=== PATIENT | female | born 1950 ===

== ENCOUNTER 2018-08-17 20:38 | Inpatient (IN) | payer OTHER ==
[2018-08-17 21:39] LABS: BASO # 0.1 K/uL (0.0-0.2); BASO % 0.9 % (0.0-2.0); EOS # 0.1 K/uL (0.0-0.7); EOS % 0.9 % (0.0-4.0); HEMOGLOBIN 7.7 g/dL (11.0-16.0); LYMPH # 2.4 K/uL (1.0-4.3); LYMPH % 33.9 % (20.0-40.0); MEAN CORPUSCULAR HEMOGLOBIN 29.9 pg (27.0-31.0); MEAN CORPUSCULAR HGB CONC 33.7 g/dL (33.0-37.0); MEAN PLATELET VOLUME 7.2 fL (7.2-11.7); MONO # 0.6 K/uL (0.0-0.8); MONO % 8.4 % (0.0-10.0); NEUT % 55.9 % (50.0-75.0); NRBC % 0.1 % (0.0-2.0); RBC 2.57 Mil/uL (3.80-5.20); RED CELL DISTRIBUTION WIDTH 13.2 % (11.5-14.5); WHITE BLOOD COUNT 7.1 K/uL (4.8-10.8)
--- NOTE | 2018-08-17 21:51 | C.PDOC ---
History Of Present Illness 67 year old female with PMHx of HLD, hypertriglyceridemia, HTN presents to the ED c/o 1 day history of dizziness associated with loss of vision for one second described as "black out". Patient reports when her vision returned she saw stars, felt tremulous and weak. Patient states shortly after she developed chest pain that she describes started at her head and came down. Patient reports she gets SOB and tired when walking. Patient saw her PMD Dr. Falcon who prescribed her Meloxicam, patient states she still dizzy. Patient denies LOC, fever, chills, nausea, vomit, ear pain, rash, injury, fall, trauma. Time Seen by Provider: 08/17/18 20:58 Chief Complaint (Nursing): Chest Pain History Per: Patient History/Exam Limitations: no limitations Onset/Duration Of Symptoms: Days (1) Current Symptoms Are (Timing): Still Present Activity At Onset Of Symptoms: Sitting Associated Symptoms Preceding Syncopal Episode: No Predromal Symptoms (Sudden Onset) Seizure Or Post-ictal Symptoms: None Fall Associated With With Symptoms: No Severity: None Recent travel outside of the [place]: No Additional History Per: Patient Past Medical History Reviewed: Historical Data, Nursing Documentation, Vital Signs Vital Signs: Last Vital Signs Temp 97.7 F 08/17/18 20:57 Pulse 79 08/17/18 20:57 Resp 20 08/17/18 20:57 BP 106/70 08/17/18 20:57 Pulse Ox 100 08/17/18 20:57 - Medical History PMH: HTN, Hypercholesterolemia Other Surgeries: thyroid surgery Family History: States: Unknown Family Hx - Social History Hx Alcohol Use: No Hx Substance Use: No Review Of Systems Constitutional: Negative for: Fever, Chills Eyes: Positive for: Vision Change ENT: Negative for: Ear Pain Cardiovascular: Positive for: Chest Pain, Palpitations Respiratory: Positive for: SOB with Excertion Gastrointestinal: Negative for: Nausea, Vomiting, Abdominal Pain Skin: Negative for: Rash Neurological: Positive for: Weakness, Dizziness. Negative for: Numbness, Headache Physical Exam - Physical Exam Appears: Non-toxic, No Acute Distress Skin: Normal Color, Warm, Dry Head: Atraumatic, Normacephalic Eye(s): bilateral: Normal Inspection, PERRL, EOMI Oral Mucosa: Moist Neck: Normal ROM, Supple Chest: Symmetrical Cardiovascular: Rhythm Regular Respiratory: Normal Breath Sounds, No Rales, No Rhonchi, No Wheezing Gastrointestinal/Abdominal: Soft, No Tenderness, No Guarding, No Rebound Extremity: Normal ROM, No Tenderness, No Swelling Neurological/Psych: Oriented x3, Normal Speech, Normal Cognition, Normal Cranial Nerves, Cerebellar Signs, Normal Motor, Normal Sensation Gait: Steady ED Course And Treatment - Laboratory Results Result Diagrams: 08/17/18 21:29 08/17/18 21:29 ECG: Interpreted By Me, Viewed By Me ECG Rhythm: Sinus Rhythm Rate From EC (BPM) O2 Sat by Pulse Oximetry: 100 (ON RA) Pulse Ox Interpretation: Normal - CT Scan/US CT head Other Rad Studies (CT/US): Read By Radiologist, Radiology Report Reviewed CT/US Interpretation: EXAM: CT Head without Intravenous Contrast. CLINICAL HISTORY: Dizziness headache. TECHNIQUE: Axial computed tomography images of the head/brain without intravenous contrast. 0.00 mGy-cm. COMPARISON: None provided. FINDINGS: BRAIN. Chronic periventricular and subcortical microvascular disease is seen. VENTRICLES: There is generalized parenchymal atrophy noted as demonstrated by symmetrical dilatation of ventricles and sulci. ORBITS: The orbits are unremarkable. SINUSES AND MASTOIDS: The paranasal sinuses and mastoid air cells are clear. BONES: No fracture. SOFT TISSUES: Unremarkable. MISCELLANEOUS: No acute intracranial pathology. IMPRESSION: 1. There is generalized parenchymal atrophy noted as demonstrated by symmetrical dilatation of ventricles and sulci. 2. Chronic periventricular and subcortical microvascular disease is seen. 3. No acute intracranial pathology. . Electronically signed on Aug 17, 2018 10:22:41 PM EDT by: Chris Smith M.D., MARKO Certified By [employer]. Fellowship Trained MRI and CT Specialist Progress Note: Plan: - Labs. - CT head. - EKG. - Labs Disposition - Disposition Forms: [employer] ([place]) - Scribe Statement The provider has reviewed the documentation as recorded by the Scribe Jerome Betancourt All medical record entries made by the Scribe were at my direction and personally dictated by me. I have reviewed the chart and agree that the record accurately reflects my personal performance of the history, physical exam, medical decision making, and the department course for this patient. I have also personally directed, reviewed, and agree with the discharge instructions and disposition.
[2018-08-17 21:55] LABS: INR 1.1; PROTHROMBIN TIME 11.6 SECONDS (9.7-12.2)
[2018-08-17 22:03] LABS: ALB/GLOB RATIO 1.5 (1.0-2.1); ALBUMIN 3.6 g/dL (3.5-5.0); ALT/SGPT 17 U/L (9-52); AST/SGOT 36 U/L (14-36); BLOOD UREA NITROGEN 28 mg/dL (7-17); CALCIUM 8.6 mg/dl (8.6-10.4); GFR NON-AFRICAN AMERICAN > 60
[2018-08-17 22:09] LABS: B-TYPE NATRIURETIC PEPTIDE 59.2 pg/mL (0-900); CK-MB 1.86 ng/mL (0.0-3.38)
[2018-08-17] MEDS ORDERED: Sodium Chloride 0.9% 500 ML IV ONE (23:05)
[2018-08-17 23:10] LABS: TRANSFERRIN 205.48 mg/dL (206-381)
[2018-08-17 23:17] LABS: % IRON SATURATION 16 (20-55); TOTAL IRON BINDING CAPACITY 297 ug/dL (250-450)
[2018-08-18 01:25] LABS: FERRITIN 16.4 ng/mL; FOLATE > 20.0 ng/mL
[2018-08-18 08:56] LABS: BASO % 0.8 % (0.0-2.0); EOS # 0.1 K/uL (0.0-0.7); EOS % 0.9 % (0.0-4.0); HEMOGLOBIN 8.6 g/dL (11.0-16.0); LYMPH % 34.3 % (20.0-40.0); MEAN CELL VOLUME 90.4 fL (81.0-99.0); MEAN CORPUSCULAR HEMOGLOBIN 30.9 pg (27.0-31.0); MEAN CORPUSCULAR HGB CONC 34.2 g/dL (33.0-37.0); MEAN PLATELET VOLUME 7.6 fL (7.2-11.7); MONO # 0.6 K/uL (0.0-0.8); MONO % 10.5 % (0.0-10.0); NEUT # 3.2 K/uL (1.8-7.0); NEUT % 53.5 % (50.0-75.0); NRBC % 0.1 % (0.0-2.0); RBC 2.77 Mil/uL (3.80-5.20); RED CELL DISTRIBUTION WIDTH 13.2 % (11.5-14.5); WHITE BLOOD COUNT 5.9 K/uL (4.8-10.8)
--- NOTE | 2018-08-18 08:58 | CP.PCM.CON ---
<Roxie Alvarez - Last Filed: 08/18/18 09:28> History of Present Illness - History of Present Illness History of Present Illness: Gastroenterology Fellow/PGY6 Consult Note 67 year old female with PMH of HTN, HLD, and Obesity presenting with weakness. Patient describes one episode of coffee ground emesis and one episode of black tarry stool yesterday. Associated weakness, dizziness, chest pain, and shortness of breath during the event and denies ongoing symptoms on current evaluation. Patient has been using Meloxicam for pain. Denies similar prior occurrence of melena or coffee-ground emesis. Associated bloating and intermittent acid reflux without use of acid suppressive medications. Denies fever, chills, sweats, diarrhea, constipation, hematochezia, hematemesis, or unintentional weight loss. Prior colonoscopy endorsed two years ago to have polyps. Patient states she was recommended to have a five year surveillance. No prior EGD. Family History-denies stomach cancer, colon cancer Social History- denies tobacco, alcohol, illicit drug use Surgical History- thyroid intervention Review of Systems - Review of Systems Review of Systems: 12-point review of systems negative except for as above Past Patient History - Past Medical History & Family History Past Medical History?: Yes - Past Social History Smoking Status: Never Smoked - CARDIAC Hx Hypercholesterolemia: Yes Hx Hypertension: Yes - PULMONARY Hx Asthma: No - MUSCULOSKELETAL/RHEUMATOLOGICAL Hx Falls: No - PSYCHIATRIC Hx Substance Use: No - SURGICAL HISTORY Other/Comment: Throat surgery - ANESTHESIA Hx Anesthesia Reactions: No Meds Allergies/Adverse Reactions: Allergies Allergy/AdvReac Type Severity Reaction Status Date / Time No Known Allergies Allergy Unverified 08/17/18 20:52 - Medications Medications: Current Medications Losartan Potassium (Cozaar) 50 mg PO DAILY [facility] Pantoprazole Sodium (Protonix Inj) 40 mg IVP Q12H [facility] Last Admin: 08/18/18 05:50 Dose: 40 mg Physical Exam - Constitutional Appears: Non-toxic, No Acute Distress - Head Exam Head Exam: ATRAUMATIC, NORMOCEPHALIC - Eye Exam Eye Exam: EOMI, PERRL. absent: Scleral icterus Pupil Exam: PERRL. absent: Miosis, Mydriatic - ENT Exam ENT Exam: Mucous Membranes Moist, Normal Oropharynx - Neck Exam Neck exam: Positive for: Full Rom, Normal Inspection - Respiratory Exam Respiratory Exam: Clear to Auscultation Bilateral. absent: Rales, Rhonchi, Wheezes - Cardiovascular Exam Cardiovascular Exam: RRR, +S1, +S2. absent: Gallop, Rubs - GI/Abdominal Exam GI & Abdominal Exam: Normal Bowel Sounds, Soft. absent: Distended, Firm, Guarding, Organomegaly, Rebound, Rigid, Tenderness - Rectal Exam Additional comments: black green stool in rectal vault, no mass lesion appreciated, normal sphincter tone - Extremities Exam Extremities exam: Positive for: normal inspection. Negative for: pedal edema - Neurological Exam Neurological exam: Alert - Psychiatric Exam Psychiatric exam: Normal Affect, Normal Mood - Skin Skin Exam: Dry, Intact, Normal Color, Warm Results - Vital Signs Recent Vital Signs: Last Vital Signs Temp 97.6 F 08/18/18 08:45 Pulse 74 08/18/18 08:45 Resp 20 08/18/18 08:45 BP 108/71 08/18/18 08:45 Pulse Ox 97 08/18/18 08:45 - Labs Result Diagrams: 08/18/18 08:30 08/18/18 08:30 Labs: Laboratory Results - last 24 hr 08/17/18 08/17/18 08/17/18 21:29 21:29 21:29 WBC 7.1 RBC 2.57 L Hgb 7.7 L Hct 22.8 L MCV 89.0 MCH 29.9 MCHC 33.7 RDW 13.2 Plt Count 281 MPV 7.2 Neut % (Auto) 55.9 Lymph % (Auto) 33.9 [place] % (Auto) 8.4 Eos % (Auto) 0.9 Baso % (Auto) 0.9 Neut # (Auto) 4.0 Lymph # (Auto) 2.4 [place] # (Auto) 0.6 Eos # (Auto) 0.1 Baso # (Auto) 0.1 Retic Count Haptoglobin PT 11.6 INR 1.1 APTT 27 Sodium 136 Potassium 4.2 Chloride 106 Carbon Dioxide 22 Anion Gap 12 BUN 28 H Creatinine 0.8 Est GFR ( Amer) > 60 Est GFR (Non-Af Amer) > 60 Random Glucose 103 Calcium 8.6 TIBC % Saturation Transferrin Ferritin Total Bilirubin 0.2 AST 36 ALT 17 Alkaline Phosphatase 68 Total Creatine Kinase 173 H CK-MB (Mass) 1.86 Troponin I < 0.0120 NT-Pro-B Natriuret Pep 59.2 Total Protein 5.9 L Albumin 3.6 Globulin 2.4 Albumin/Globulin Ratio 1.5 Vitamin B12 Folate Stool Occult Blood Blood Type Antibody Screen 08/17/18 08/17/18 08/17/18 21:29 21:29 22:03 WBC RBC Hgb Hct MCV MCH MCHC RDW Plt Count MPV Neut % (Auto) Lymph % (Auto) [place] % (Auto) Eos % (Auto) Baso % (Auto) Neut # (Auto) Lymph # (Auto) [place] # (Auto) Eos # (Auto) Baso # (Auto) Retic Count Haptoglobin 121.2 PT INR APTT Sodium Potassium Chloride Carbon Dioxide Anion Gap BUN Creatinine Est GFR ( Amer) Est GFR (Non-Af Amer) Random Glucose Calcium TIBC % Saturation Transferrin 205.48 L Ferritin 16.4 Total Bilirubin AST ALT Alkaline Phosphatase Total Creatine Kinase CK-MB (Mass) Troponin I NT-Pro-B Natriuret Pep Total Protein Albumin Globulin Albumin/Globulin Ratio Vitamin B12 859 Folate > 20.0 Stool Occult Blood Positive H Blood Type Antibody Screen 08/17/18 08/17/18 08/17/18 22:19 22:29 22:47 WBC RBC Hgb Hct MCV MCH MCHC RDW Plt Count MPV Neut % (Auto) Lymph % (Auto) [place] % (Auto) Eos % (Auto) Baso % (Auto) Neut # (Auto) Lymph # (Auto) [place] # (Auto) Eos # (Auto) Baso # (Auto) Retic Count 5.1 H Haptoglobin PT INR APTT Sodium Potassium Chloride Carbon Dioxide Anion Gap BUN Creatinine Est GFR ( Amer) Est GFR (Non-Af Amer) Random Glucose Calcium TIBC 297 % Saturation 16 L Transferrin Ferritin Total Bilirubin AST ALT Alkaline Phosphatase Total Creatine Kinase CK-MB (Mass) Troponin I NT-Pro-B Natriuret Pep Total Protein Albumin Globulin Albumin/Globulin Ratio Vitamin B12 Folate Stool Occult Blood Blood Type O POSITIVE Antibody Screen Negative Assessment & Plan - Assessment and Plan (Free Text) Assessment: 67 year old female with PMH of HTN, HLD, and Obesity presenting with weakness. Active treatment of symptomatic anemia with noted melena and coffee-ground emesis on questioning. Prior colonoscopy endorsed two years ago to have polyps. Patient states she was recommended to have a five year surveillance. No prior EGD Plan: -proceed with urgent EGD today to evaluate for peptic ulcer disease and rule out vascular malformation requiring intervention -made NPO, patient denies oral intake since before midnight, discussed with nursing to keep NPO -no further episodes of melena or coffee-ground emesis -hemodynamically stable -H/H with appropriate response to transfusion (received one unit pRBC) -continue PPI 40mg IV BID -will provide further recommendations after endoscopic evaluation <Fransisco Rodriguez - Last Filed: 08/18/18 12:35> Meds - Medications Medications: Current Medications Losartan Potassium (Cozaar) 50 mg PO DAILY [facility] Last Admin: 08/18/18 10:03 Dose: Not Given Pantoprazole Sodium (Protonix Inj) 40 mg IVP Q12H [facility] Last Admin: 08/18/18 05:50 Dose: 40 mg Results - Vital Signs Recent Vital Signs: Last Vital Signs Temp 97.6 F 08/18/18 11:39 Pulse 91 H 08/18/18 11:39 Resp 12 08/18/18 11:39 BP 122/62 08/18/18 11:39 Pulse Ox 97 08/18/18 11:39 - Labs Result Diagrams: 08/18/18 08:30 08/18/18 08:30 Labs: Laboratory Results - last 24 hr 08/17/18 08/17/18 08/17/18 21:29 21:29 21:29 WBC 7.1 RBC 2.57 L Hgb 7.7 L Hct 22.8 L MCV 89.0 MCH 29.9 MCHC 33.7 RDW 13.2 Plt Count 281 MPV 7.2 Neut % (Auto) 55.9 Lymph % (Auto) 33.9 [place] % (Auto) 8.4 Eos % (Auto) 0.9 Baso % (Auto) 0.9 Neut # (Auto) 4.0 Lymph # (Auto) 2.4 [place] # (Auto) 0.6 Eos # (Auto) 0.1 Baso # (Auto) 0.1 Retic Count Haptoglobin PT 11.6 INR 1.1 APTT 27 Sodium 136 Potassium 4.2 Chloride 106 Carbon Dioxide 22 Anion Gap 12 BUN 28 H Creatinine 0.8 Est GFR ( Amer) > 60 Est GFR (Non-Af Amer) > 60 Random Glucose 103 Calcium 8.6 TIBC % Saturation Transferrin Ferritin Total Bilirubin 0.2 AST 36 ALT 17 Alkaline Phosphatase 68 Total Creatine Kinase 173 H CK-MB (Mass) 1.86 Troponin I < 0.0120 NT-Pro-B Natriuret Pep 59.2 Total Protein 5.9 L Albumin 3.6 Globulin 2.4 Albumin/Globulin Ratio 1.5 Vitamin B12 Folate Stool Occult Blood Blood Type Antibody Screen 08/17/18 08/17/18 08/17/18 21:29 21:29 22:03 WBC RBC Hgb Hct MCV MCH MCHC RDW Plt Count MPV Neut % (Auto) Lymph % (Auto) [place] % (Auto) Eos % (Auto) Baso % (Auto) Neut # (Auto) Lymph # (Auto) [place] # (Auto) Eos # (Auto) Baso # (Auto) Retic Count Haptoglobin 121.2 PT INR APTT Sodium Potassium Chloride Carbon Dioxide Anion Gap BUN Creatinine Est GFR ( Amer) Est GFR (Non-Af Amer) Random Glucose Calcium TIBC % Saturation Transferrin 205.48 L Ferritin 16.4 Total Bilirubin AST ALT Alkaline Phosphatase Total Creatine Kinase CK-MB (Mass) Troponin I NT-Pro-B Natriuret Pep Total Protein Albumin Globulin Albumin/Globulin Ratio Vitamin B12 859 Folate > 20.0 Stool Occult Blood Positive H Blood Type Antibody Screen 08/17/18 08/17/18 08/17/18 22:19 22:29 22:47 WBC RBC Hgb Hct MCV MCH MCHC RDW Plt Count MPV Neut % (Auto) Lymph % (Auto) [place] % (Auto) Eos % (Auto) Baso % (Auto) Neut # (Auto) Lymph # (Auto) [place] # (Auto) Eos # (Auto) Baso # (Auto) Retic Count 5.1 H Haptoglobin PT INR APTT Sodium Potassium Chloride Carbon Dioxide Anion Gap BUN Creatinine Est GFR ( Amer) Est GFR (Non-Af Amer) Random Glucose Calcium TIBC 297 % Saturation 16 L Transferrin Ferritin Total Bilirubin AST ALT Alkaline Phosphatase Total Creatine Kinase CK-MB (Mass) Troponin I NT-Pro-B Natriuret Pep Total Protein Albumin Globulin Albumin/Globulin Ratio Vitamin B12 Folate Stool Occult Blood Blood Type O POSITIVE Antibody Screen Negative 08/18/18 08/18/18 08:30 08:30 WBC 5.9 RBC 2.77 L Hgb 8.6 L Hct 25.1 L MCV 90.4 MCH 30.9 MCHC 34.2 RDW 13.2 Plt Count 234 MPV 7.6 Neut % (Auto) 53.5 Lymph % (Auto) 34.3 [place] % (Auto) 10.5 H Eos % (Auto) 0.9 Baso % (Auto) 0.8 Neut # (Auto) 3.2 Lymph # (Auto) 2.0 [place] # (Auto) 0.6 Eos # (Auto) 0.1 Baso # (Auto) 0.0 Retic Count Haptoglobin PT INR APTT Sodium 138 Potassium 3.7 Chloride 111 H Carbon Dioxide 25 Anion Gap 6 L BUN 17 Creatinine 0.6 L Est GFR ( Amer) > 60 Est GFR (Non-Af Amer) > 60 Random Glucose 92 Calcium 8.0 L TIBC % Saturation Transferrin Ferritin Total Bilirubin 0.6 AST 27 ALT 16 Alkaline Phosphatase 65 Total Creatine Kinase CK-MB (Mass) Troponin I NT-Pro-B Natriuret Pep Total Protein 5.4 L Albumin 3.1 L Globulin 2.3 Albumin/Globulin Ratio 1.4 Vitamin B12 Folate Stool Occult Blood Blood Type Antibody Screen Attending/Attestation - Attestation I have personally seen and examined this patient.: Yes I have fully participated in the care of the patient.: Yes I have reviewed all pertinent clinical information: Yes Notes (Text): 08/18/18 12:31 I have seen and examined patient with GI fellow. Agree with above documentation with the following additions. In brief, this is a 67 year old female with history of HTN, hyperlipidemia who presents with complaint of weakness and dark stool. She reports one episode of dark colored emesis along with melena appearing stool yesterday. She does report intermittent NSAID use for relief of joint pain. Over the past 24 hours she reports increased fatigue, lethargy and shortness of breath. She otherwise denies fever/chills, weight loss, or similar prior episodes. She had a colonoscopy 2 years ago which showed polyps as per patient, no prior EGD. HTN Hyperlipidemia Melena Anemia - NPO - Continue with IVF hydration, supportive care - Continue to monitor H/H, s/p PRBC transfusion - Continue with PPI therapy - Given clinical scenario, will plan for urgent EGD today for further evaluation to rule out peptic ulcer disease as source of possible GI bleeding - Further recommendations following endoscopic examination
--- NOTE | 2018-08-18 08:59 | RAD ---
Date of service: 08/17/2018 PROCEDURE: CHEST RADIOGRAPH, 1 VIEW HISTORY: CP COMPARISON: None available. FINDINGS: LUNGS: No consolidation. Discoid atelectasis and/or scarring; latter left mid to lower lung zone PLEURA: No pneumothorax or pleural fluid seen. CARDIOVASCULAR: There is presence of aortic atherosclerotic calcification on x-ray. Minimal cardiomegaly suspect No significant appearing pulmonary venous congestion. OSSEOUS STRUCTURES: No significant abnormalities. VISUALIZED UPPER ABDOMEN: Normal. OTHER FINDINGS: None. IMPRESSION: No acute effusions or infiltrates. Other findings as above.
--- NOTE | 2018-08-18 09:01 | CT ---
Date of service: 08/17/2018 PROCEDURE: CT HEAD WITHOUT CONTRAST. HISTORY: dizziness, headache COMPARISON: None available. TECHNIQUE: Axial computed tomography images were obtained through the head/brain without intravenous contrast. Radiation dose: Total exam DLP = 1042.33 mGy-cm. This CT exam was performed using one or more of the following dose reduction techniques: Automated exposure control, adjustment of the mA and/or kV according to patient size, and/or use of iterative reconstruction technique. FINDINGS: HEMORRHAGE: No intracranial hemorrhage. BRAIN: Brown-white matter differentiation is preserved. There is no mass, mass effect or abnormal extra-axial fluid collection. There is no territorial infarction. The midline sagittal structures are normal. VENTRICLES: There is mild age-related global parenchymal volume loss and proportionate enlargement of the ventricles and cortical sulci. CALVARIUM: There is no calvarial fracture or extracranial soft tissue swelling. PARANASAL SINUSES: Predominantly clear. MASTOID AIR CELLS: Predominantly clear. OTHER FINDINGS: None. IMPRESSION: No acute intracranial abnormality. A preliminary report was provided by [employer].
[2018-08-18 09:13] LABS: ALB/GLOB RATIO 1.4 (1.0-2.1); ALBUMIN 3.1 g/dL (3.5-5.0); ALT/SGPT 16 U/L (9-52); AST/SGOT 27 U/L (14-36); BLOOD UREA NITROGEN 17 mg/dL (7-17); GFR NON-AFRICAN AMERICAN > 60
--- NOTE | 2018-08-18 12:30 | CP.PCM.HP ---
History of Present Illness - History of Present Illness History of Present Illness: 67 year old female with PMHx of HLD, hypertriglyceridemia, HTN presents to the ED c/o 1 day history of dizziness associated with loss of vision for one second described as "black out". Patient reports when her vision returned she saw s tars, felt tremulous and weak. Patient states shortly after she developed chest pain that she describes started at her head and came down. Pt. had one episode of coffee-groung emesis and black tarry stool with above symptoms . Pt takes meloxacam for jt pains No def. h/o PUD Present on Admission - Present on Admission Any Indicators Present on Admission: No Review of Systems - Review of Systems All systems: reviewed and no additional remarkable complaints except (dizziness and black stool) - Gastrointestinal Gastrointestinal: Change in Stool Character, Coffee Ground Emesis, Vomiting. absent: Change in Bowel Habits, Constipation, Dyspepsia, Dysphagia Past Patient History - Past Medical History & Family History Past Medical History?: Yes - Past Social History Smoking Status: Never Smoked - CARDIAC Hx Hypercholesterolemia: Yes Hx Hypertension: Yes - PULMONARY Hx Asthma: No - MUSCULOSKELETAL/RHEUMATOLOGICAL Hx Falls: No - PSYCHIATRIC Hx Substance Use: No - SURGICAL HISTORY Other/Comment: Throat surgery - ANESTHESIA Hx Anesthesia Reactions: No Meds Allergies/Adverse Reactions: Allergies Allergy/AdvReac Type Severity Reaction Status Date / Time No Known Allergies Allergy Unverified 08/17/18 20:52 Physical Exam - Constitutional Appears: Well - Head Exam Head Exam: ATRAUMATIC, NORMAL INSPECTION, NORMOCEPHALIC - Eye Exam Eye Exam: EOMI, Normal appearance, PERRL - ENT Exam ENT Exam: Mucous Membranes Moist, Normal Exam - Respiratory Exam Respiratory Exam: Clear to Auscultation Bilateral, NORMAL BREATHING PATTERN - Cardiovascular Exam Cardiovascular Exam: REGULAR RHYTHM - GI/Abdominal Exam GI & Abdominal Exam: Normal Bowel Sounds, Soft. absent: Tenderness - Extremities Exam Extremities exam: Positive for: normal inspection - Back Exam Back exam: NORMAL INSPECTION Results - Vital Signs Recent Vital Signs: Last Vital Signs Temp 97.6 F 08/18/18 11:39 Pulse 91 H 08/18/18 11:39 Resp 12 08/18/18 11:39 BP 122/62 08/18/18 11:39 Pulse Ox 97 08/18/18 11:39 - Labs Result Diagrams: 08/18/18 08:30 08/18/18 08:30 Labs: Laboratory Results - last 24 hr 08/17/18 08/17/18 08/17/18 21:29 21:29 21:29 WBC 7.1 RBC 2.57 L Hgb 7.7 L Hct 22.8 L MCV 89.0 MCH 29.9 MCHC 33.7 RDW 13.2 Plt Count 281 MPV 7.2 Neut % (Auto) 55.9 Lymph % (Auto) 33.9 [place] % (Auto) 8.4 Eos % (Auto) 0.9 Baso % (Auto) 0.9 Neut # (Auto) 4.0 Lymph # (Auto) 2.4 [place] # (Auto) 0.6 Eos # (Auto) 0.1 Baso # (Auto) 0.1 Retic Count Haptoglobin PT 11.6 INR 1.1 APTT 27 Sodium 136 Potassium 4.2 Chloride 106 Carbon Dioxide 22 Anion Gap 12 BUN 28 H Creatinine 0.8 Est GFR ( Amer) > 60 Est GFR (Non-Af Amer) > 60 Random Glucose 103 Calcium 8.6 TIBC % Saturation Transferrin Ferritin Total Bilirubin 0.2 AST 36 ALT 17 Alkaline Phosphatase 68 Total Creatine Kinase 173 H CK-MB (Mass) 1.86 Troponin I < 0.0120 NT-Pro-B Natriuret Pep 59.2 Total Protein 5.9 L Albumin 3.6 Globulin 2.4 Albumin/Globulin Ratio 1.5 Vitamin B12 Folate Stool Occult Blood Blood Type Antibody Screen 08/17/18 08/17/18 08/17/18 21:29 21:29 22:03 WBC RBC Hgb Hct MCV MCH MCHC RDW Plt Count MPV Neut % (Auto) Lymph % (Auto) [place] % (Auto) Eos % (Auto) Baso % (Auto) Neut # (Auto) Lymph # (Auto) [place] # (Auto) Eos # (Auto) Baso # (Auto) Retic Count Haptoglobin 121.2 PT INR APTT Sodium Potassium Chloride Carbon Dioxide Anion Gap BUN Creatinine Est GFR ( Amer) Est GFR (Non-Af Amer) Random Glucose Calcium TIBC % Saturation Transferrin 205.48 L Ferritin 16.4 Total Bilirubin AST ALT Alkaline Phosphatase Total Creatine Kinase CK-MB (Mass) Troponin I NT-Pro-B Natriuret Pep Total Protein Albumin Globulin Albumin/Globulin Ratio Vitamin B12 859 Folate > 20.0 Stool Occult Blood Positive H Blood Type Antibody Screen 08/17/18 08/17/18 08/17/18 22:19 22:29 22:47 WBC RBC Hgb Hct MCV MCH MCHC RDW Plt Count MPV Neut % (Auto) Lymph % (Auto) [place] % (Auto) Eos % (Auto) Baso % (Auto) Neut # (Auto) Lymph # (Auto) [place] # (Auto) Eos # (Auto) Baso # (Auto) Retic Count 5.1 H Haptoglobin PT INR APTT Sodium Potassium Chloride Carbon Dioxide Anion Gap BUN Creatinine Est GFR ( Amer) Est GFR (Non-Af Amer) Random Glucose Calcium TIBC 297 % Saturation 16 L Transferrin Ferritin Total Bilirubin AST ALT Alkaline Phosphatase Total Creatine Kinase CK-MB (Mass) Troponin I NT-Pro-B Natriuret Pep Total Protein Albumin Globulin Albumin/Globulin Ratio Vitamin B12 Folate Stool Occult Blood Blood Type O POSITIVE Antibody Screen Negative 08/18/18 08/18/18 08:30 08:30 WBC 5.9 RBC 2.77 L Hgb 8.6 L Hct 25.1 L MCV 90.4 MCH 30.9 MCHC 34.2 RDW 13.2 Plt Count 234 MPV 7.6 Neut % (Auto) 53.5 Lymph % (Auto) 34.3 [place] % (Auto) 10.5 H Eos % (Auto) 0.9 Baso % (Auto) 0.8 Neut # (Auto) 3.2 Lymph # (Auto) 2.0 [place] # (Auto) 0.6 Eos # (Auto) 0.1 Baso # (Auto) 0.0 Retic Count Haptoglobin PT INR APTT Sodium 138 Potassium 3.7 Chloride 111 H Carbon Dioxide 25 Anion Gap 6 L BUN 17 Creatinine 0.6 L Est GFR ( Amer) > 60 Est GFR (Non-Af Amer) > 60 Random Glucose 92 Calcium 8.0 L TIBC % Saturation Transferrin Ferritin Total Bilirubin 0.6 AST 27 ALT 16 Alkaline Phosphatase 65 Total Creatine Kinase CK-MB (Mass) Troponin I NT-Pro-B Natriuret Pep Total Protein 5.4 L Albumin 3.1 L Globulin 2.3 Albumin/Globulin Ratio 1.4 Vitamin B12 Folate Stool Occult Blood Blood Type Antibody Screen Assessment & Plan (1) Upper GI bleed Status: Acute (2) Gastritis and gastroduodenitis with hemorrhage Status: Acute (3) Iron deficiency anemia secondary to blood loss (chronic) Status: Acute Comment: received 1 PC
[2018-08-18] MEDS ORDERED: Midazolam 2 MG/2 ML VIAL ONE (13:06)
[2018-08-18] MEDS ORDERED: Propofol 10 mg/ml Inj (20 ML) ONE (13:06)
[2018-08-18 14:44] VITALS: RESP 20
[2018-08-19 08:14] LABS: BASO % 0.9 % (0.0-2.0); EOS # 0.1 K/uL (0.0-0.7); EOS % 1.3 % (0.0-4.0); HEMOGLOBIN 8.5 g/dL (11.0-16.0); LYMPH # 1.8 K/uL (1.0-4.3); LYMPH % 33.1 % (20.0-40.0); MEAN CELL VOLUME 89.7 fL (81.0-99.0); MEAN CORPUSCULAR HEMOGLOBIN 31.3 pg (27.0-31.0); MEAN PLATELET VOLUME 7.4 fL (7.2-11.7); MONO # 0.5 K/uL (0.0-0.8); MONO % 9.8 % (0.0-10.0); NEUT % 54.9 % (50.0-75.0); NRBC % 0.1 % (0.0-2.0); RBC 2.71 Mil/uL (3.80-5.20); RED CELL DISTRIBUTION WIDTH 13.6 % (11.5-14.5); WHITE BLOOD COUNT 5.4 K/uL (4.8-10.8)
[2018-08-19 08:31] LABS: ALB/GLOB RATIO 1.3 (1.0-2.1); ALBUMIN 3.1 g/dL (3.5-5.0); ALT/SGPT 21 U/L (9-52); AST/SGOT 28 U/L (14-36); BLOOD UREA NITROGEN 12 mg/dL (7-17); CALCIUM 8.6 mg/dl (8.6-10.4); GFR NON-AFRICAN AMERICAN > 60
--- NOTE | 2018-08-19 09:30 | CP.PCM.PN ---
<Roxie Alvarez - Last Filed: 08/19/18 11:03> Subjective - Date & Time of Evaluation Date of Evaluation: 08/19/18 Time of Evaluation: 09:26 - Subjective Subjective: Gastroenterology Fellow/PGY6 Progress Note Patient feels well. Denies abdominal pain. tolerated diet without recurrent vomiting or concern for coffee-ground emesis. No bowel movement yesterday. A 12- point review of systems negative except for as above. Objective - Vital Signs/Intake and Output Vital Signs (last 24 hours): Temp Pulse Resp BP Pulse Ox 98 F 76 20 112/65 94 L 08/19/18 07:00 08/19/18 08:34 08/19/18 07:00 08/19/18 07:00 08/19/18 07:00 Intake and Output: 08/19/18 08/19/18 06:59 18:59 Intake Total 500 Balance 500 - Medications Medications: Current Medications Losartan Potassium (Cozaar) 50 mg PO DAILY [facility] Last Admin: 08/18/18 10:03 Dose: Not Given Pantoprazole Sodium (Protonix Ec Tab) 40 mg PO DAILY [facility] - Labs Labs: 08/19/18 08:05 08/19/18 08:05 PT 11.6 SECONDS (9.7-12.2) 08/17/18 21:29 INR 1.1 08/17/18 21:29 APTT 27 SECONDS (21-34) 08/17/18 21:29 - Constitutional Appears: Non-toxic, No Acute Distress - Head Exam Head Exam: ATRAUMATIC, NORMOCEPHALIC - Eye Exam Eye Exam: EOMI, PERRL. absent: Scleral icterus Pupil Exam: PERRL. absent: Miosis, Mydriatic - ENT Exam ENT Exam: Mucous Membranes Moist, Normal Oropharynx - Neck Exam Neck Exam: Full ROM, Normal Inspection - Respiratory Exam Respiratory Exam: Clear to Ausculation Bilateral. absent: Rales, Rhonchi, Wheezes - Cardiovascular Exam Cardiovascular Exam: RRR, +S1, +S2. absent: Gallop, Rubs - GI/Abdominal Exam GI & Abdominal Exam: Soft, Normal Bowel Sounds. absent: Distended, Firm, Guarding, Rigid, Tenderness, Organomegaly, Rebound - Extremities Exam Extremities Exam: Normal Inspection. absent: Pedal Edema - Neurological Exam Neurological Exam: Alert, Awake - Psychiatric Exam Psychiatric exam: Normal Affect, Normal Mood - Skin Skin Exam: Dry, Intact, Normal Color, Warm Assessment and Plan - Assessment and Plan (Free Text) Assessment: 67 year old female with PMH of HTN, HLD, and Obesity presenting with weakness. Active treatment of symptomatic anemia with noted melena and coffee-ground emesis on questioning. Prior colonoscopy endorsed two years ago to have polyps. Patient states she was recommended to have a five year surveillance. Plan: -POD1 (08/18) EGD showing gastritis, irregular Z-line, and clean-based superficial duodenal bulb 9mm ulcer without signs of active bleeding -continue Protonix 40mg PO 30 minutes before breakfast on discharge for 6-8 weeks -H/H stable, received one unit pRBC 08/17 -tolerated liquid diet, advanced to soft diet today -counselled patients to avoid NSAIDs, tylenol only for pain -okay to discharge from GI standpoint -outpatient GI follow up for re-assessment and consideration for repeat EGD to confirm ulcer healing in next 2-4 weeks <Fransisco Rodriguez - Last Filed: 08/19/18 11:41> Objective - Vital Signs/Intake and Output Vital Signs (last 24 hours): Temp Pulse Resp BP Pulse Ox 98 F 76 20 112/65 94 L 08/19/18 07:00 08/19/18 08:34 08/19/18 07:00 08/19/18 07:00 08/19/18 07:00 Intake and Output: 08/19/18 08/19/18 06:59 18:59 Intake Total 500 Balance 500 - Medications Medications: Current Medications Losartan Potassium (Cozaar) 50 mg PO DAILY [facility] Last Admin: 08/19/18 09:28 Dose: 50 mg Pantoprazole Sodium (Protonix Ec Tab) 40 mg PO DAILY [facility] Last Admin: 08/19/18 09:28 Dose: 40 mg - Labs Labs: 08/19/18 08:05 08/19/18 08:05 PT 11.6 SECONDS (9.7-12.2) 08/17/18 21:29 INR 1.1 08/17/18 21:29 APTT 27 SECONDS (21-34) 08/17/18 21:29 Attending/Attestation - Attestation I have personally seen and examined this patient.: Yes I have fully participated in the care of the patient.: Yes I have reviewed all pertinent clinical information, including history, physical exam and plan: Yes Notes (Text): 08/19/18 11:39 I have seen and examined patient with GI fellow. No acute events overnight, she is seen resting in bed comfortably. She denies abdominal pain, nausea, vomiting, fever/chills, melena. Tolerating PO diet without difficulty. HTN Hyperlipidemia Melena, anemia - s/p EGD yesterday showing duodenal ulcer - Diet as tolerated - Follow up EGD biopsy results - Continue with PPI therapy - NSAID avoidance - H/H stable, continue to monitor - From GI standpoint ok to discharge home with subsequent outpatient follow up. Will sign off case, please reconsult as necessary, thank you.
[2018-08-19] MEDS ORDERED: Pantoprazole 40 mg EC Tab PO SCH (10:00)
--- NOTE | 2018-08-19 14:05 | CP.PCM.DIS ---
Provider - Provider Date of Admission: 08/17/18 23:47 Attending physician: Verito Moe MD Time Spent in preparation of Discharge (in minutes): 35 Diagnosis - Discharge Diagnosis (1) Upper GI bleed Status: Acute (2) Gastritis and gastroduodenitis with hemorrhage Status: Acute (3) Iron deficiency anemia secondary to blood loss (chronic) Status: Acute Hospital Course - Lab Results Lab Results: Most Recent Lab Values WBC 5.4 K/uL (4.8-10.8) 08/19/18 08:05 RBC 2.71 Mil/uL (3.80-5.20) L 08/19/18 08:05 Hgb 8.5 g/dL (11.0-16.0) L 08/19/18 08:05 Hct 24.3 % (34.0-47.0) L 08/19/18 08:05 MCV 89.7 fL (81.0-99.0) 08/19/18 08:05 MCH 31.3 pg (27.0-31.0) H 08/19/18 08:05 MCHC 35.0 g/dL (33.0-37.0) 08/19/18 08:05 RDW 13.6 % (11.5-14.5) 08/19/18 08:05 Plt Count 248 K/uL (130-400) 08/19/18 08:05 MPV 7.4 fL (7.2-11.7) 08/19/18 08:05 Neut % (Auto) 54.9 % (50.0-75.0) 08/19/18 08:05 Lymph % (Auto) 33.1 % (20.0-40.0) 08/19/18 08:05 [place] % (Auto) 9.8 % (0.0-10.0) 08/19/18 08:05 Eos % (Auto) 1.3 % (0.0-4.0) 08/19/18 08:05 Baso % (Auto) 0.9 % (0.0-2.0) 08/19/18 08:05 Neut # (Auto) 3.0 K/uL (1.8-7.0) 08/19/18 08:05 Lymph # (Auto) 1.8 K/uL (1.0-4.3) 08/19/18 08:05 [place] # (Auto) 0.5 K/uL (0.0-0.8) 08/19/18 08:05 Eos # (Auto) 0.1 K/uL (0.0-0.7) 08/19/18 08:05 Baso # (Auto) 0.0 K/uL (0.0-0.2) 08/19/18 08:05 Retic Count 5.1 % (0.5-1.5) H 08/17/18 22:29 Haptoglobin 121.2 mg/dL (30.0-200.0) 08/17/18 21: PT 11.6 SECONDS (9.7-12.2) 08/17/18: INR 1.1 08/17/18 21: APTT 27 SECONDS (21-34) 08/17/18 21:29 Sodium 138 mmol/L (132-148) 08/19/18 08:05 Potassium 3.8 mmol/L (3.6-5.2) 08/19/18 08:05 Chloride 108 mmol/L (98-107) H 08/19/18 08:05 Carbon Dioxide 26 mmol/L (22-30) 08/19/18 08:05 Anion Gap 8 (10-20) L 08/19/18 08:05 BUN 12 mg/dL (7-17) 08/19/18 08:05 Creatinine 0.6 mg/dL (0.7-1.2) L 08/19/18 08:05 Est GFR ( Amer) > 60 08/19/18 08:05 Est GFR (Non-Af Amer) > 60 08/19/18 08:05 Random Glucose 93 mg/dL (65-105) 08/19/18 08:05 Calcium 8.6 mg/dl (8.6-10.4) 08/19/18 08:05 TIBC 297 ug/dL (250-450) 08/17/18 22:47 % Saturation 16 (20-55) L 08/17/18 22:47 Transferrin 205.48 mg/dL (206-381) L 08/17/18 21:29 Ferritin 16.4 ng/mL 08/17/18 21:29 Total Bilirubin 0.4 mg/dL (0.2-1.3) 08/19/18 08:05 AST 28 U/L (14-36) 08/19/18 08:05 ALT 21 U/L (9-52) 08/19/18 08:05 Alkaline Phosphatase 61 U/L (38-126) 08/19/18 08:05 Total Creatine Kinase 173 U/L (30-135) H 08/17/18 21:29 CK-MB (Mass) 1.86 ng/mL (0.0-3.38) 08/17/18 21:29 Troponin I < 0.0120 ng/mL (0.00-0.120) 08/17/18 21:29 NT-Pro-B Natriuret Pep 59.2 pg/mL (0-900) 08/17/18 21:29 Total Protein 5.6 g/dL (6.3-8.3) L 08/19/18 08:05 Albumin 3.1 g/dL (3.5-5.0) L 08/19/18 08:05 Globulin 2.5 gm/dL (2.2-3.9) 08/19/18 08:05 Albumin/Globulin Ratio 1.3 (1.0-2.1) 08/19/18 08:05 Vitamin B12 859 pg/mL (239-931) 08/17/18 21:29 Folate > 20.0 ng/mL 08/17/18 21:29 Stool Occult Blood Positive (NEGATIVE) H 08/17/18 22:03 Blood Type O POSITIVE 08/17/18 22:19 Antibody Screen Negative 08/17/18 22:19 - Hospital Course Hospital Course: 67 year old female with PMHx of HLD, hypertriglyceridemia, HTN presents to the ED c/o 1 day history of dizziness associated with loss of vision for one second described as "black out". Patient reports when her vision returned she saw sta rs, felt tremulous and weak. Patient states shortly after she developed chest pain that she describes started at her head and came down. Pt. had one episode of coffee-groung emesis and black tarry stool with above symptoms . Pt takes meloxacam for jt pains No def. h/o PUD following day the patient underwent a upper endoscopy which showed a large duodenal ulcer with no active bleeding. The assessment of the GI service was the patient's had upper GI bleeding secary to peptic uer disease induced by meloxicam. Patient currently stable hemoglobin is still 8.5 We will discharge the patient follow outpatient continue PPI and avoid any further nonsteroidal anti-inflammatory drugs Discharge Exam - Head Exam Head Exam: ATRAUMATIC, NORMOCEPHALIC Discharge Plan - Follow Up Plan Condition: GOOD Disposition: HOME/ ROUTINE Instructions: Gastrointestinal Bleeding (DC), Gastroenteritis (DC) Referrals: Verito Moe MD [Staff Provider] -
[2018-08-19 16:52] VITALS: BP 100/68; PULSE 71; TEMP 97.8; O2SAT 99
--- NOTE | 2018-08-19 17:04 | CP.PCM.PN ---
Subjective - Date & Time of Evaluation Date of Evaluation: 08/19/18 Time of Evaluation: 17:03 - Subjective Subjective: PATIENT SEEN AND EXAMINED AT THE BEDSIDE Objective - Vital Signs/Intake and Output Vital Signs (last 24 hours): Temp Pulse Resp BP Pulse Ox 97.8 F 71 20 100/68 99 08/19/18 15:00 08/19/18 15:00 08/19/18 15:00 08/19/18 15:00 08/19/18 15:00 Intake and Output: 08/19/18 08/19/18 06:59 18:59 Intake Total 500 Balance 500 - Medications Medications: Current Medications Losartan Potassium (Cozaar) 50 mg PO DAILY [facility] Last Admin: 08/19/18 09:28 Dose: 50 mg Pantoprazole Sodium (Protonix Ec Tab) 40 mg PO DAILY [facility] Last Admin: 08/19/18 09:28 Dose: 40 mg - Labs Labs: 08/19/18 08:05 08/19/18 08:05 PT 11.6 SECONDS (9.7-12.2) 08/17/18 21:29 INR 1.1 08/17/18 21:29 APTT 27 SECONDS (21-34) 08/17/18 21:29 Assessment and Plan - Assessment and Plan (Free Text) Assessment: FOLLOW UP WITH DR JOSE IN HIS OFFICE--------CALL FOR APPOINTMENT FOLLOW UP WITH DR MIRANDA IN HIS OFFICE ------CALL FOR APPOINTMENT ADDRESS YOUR ENDOSCOPY BIOPSY RESULT AT YOUR VISIT CONTINUE HOME MEDICATION NEW PRESCRIPTION GIVEN PROTONIX 40 MG PO DAILY STOP TAKING NSAID SUCH MELOXICAM ACTIVITY TOLERATED CALL DR JOSE OR GO TO THE EMERGENCY ROOM IF SYMPTOM RETURN OR WORSENIN
--- NOTE | 2018-08-21 21:40 | CARD ---
APPROVED REPORT Date of service: 08/17/2018 EKG Measurement Heart [id number] <Conclusion> Normal sinus rhythm Normal ECG
== END 2018-08-19 18:12 | disposition home or self-care (01) | DRG 811 ==
LOC: C.ER 20:38 → C.9E 23:47 → C.5S 08-18 00:16
PROVIDERS: ADMIT Internal Medicine Cardiovascular Disease; ATTEND Internal Medicine Cardiovascular Disease
PROC: 0DB68ZX Excision of Stomach, Via Natural or Artificial Opening Endoscopic, Diagnostic (ICD-10-PCS; principal; 2018-08-18 13:05)
DX: D50.0 Iron deficiency anemia secondary to blood loss (chronic) (principal); K26.4 Chronic or unspecified duodenal ulcer with hemorrhage; K29.00 Acute gastritis without bleeding; B96.81 Helicobacter pylori [H. pylori] as the cause of diseases classified elsewhere; E78.00 Pure hypercholesterolemia, unspecified; E78.1 Pure hyperglyceridemia; I10 Essential (primary) hypertension; H54.7 Unspecified visual loss